=== PATIENT | female | born 1960 | race Caucasian/White ===

== ENCOUNTER 2022-03-18 17:01 | Observation (INO) ==
[2022-03-18] MEDS ORDERED: ONDANSETRON INJ 2 MG/ML 2 ML VIAL IV STA (17:31)
[2022-03-18] MEDS ORDERED: SODIUM CHLORIDE 0.9% 500 ML IV STA (17:31)
[2022-03-18 18:20] LABS: Basophils # (auto) 0.08 K/uL (0-0.2); Eosinophils # (auto) 0.14 K/uL (0-0.50); Eosinophils % (auto) 1.7 %; Hemoglobin 15.9 g/dl (12.0-16.0); Immature Granulocytes # (auto) 0.01 K/uL (0.01-0.20); Immature Granulocytes % (auto) 0.1 %; Lymphocytes # (auto) 1.81 K/uL (1.2-3.4); Lymphocytes % (auto) 22.5 %; Mean Corpuscular Hemoglobin 30.7 pg (25.0-34.0); Mean Corpuscular Hgb Conc 35.3 g/dL (32.0-36.0); Mean Corpuscular Volume 86.9 fL (80.0-100.0); Mean Platelet Volume 10.1 fL (9.4-12.4); Monocytes # (auto) 0.51 K/uL (0.11-0.59); Monocytes % (auto) 6.4 %; Neutrophils # (auto) 5.48 K/uL (1.40-6.50); Neutrophils % (auto) 68.3 %; Platelet Count 300 K/uL (130-400); RDW Coefficient of Variation 11.7 % (11.5-14.5); RDW Standard Deviation 37.2 fL (36.4-46.3); Red Blood Count 5.18 M/uL (4.20-5.40); White Blood Count 8.03 K/ul (4.8-10.8)
[2022-03-18 18:32] LABS: Partial Thromboplastin Time 28.5 Seconds (21.0-31.0); Prothrombin Time 10.6 Seconds (9.0-12.0)
[2022-03-18 18:35] LABS: Albumin Level 4.5 gm/dl (3.4-5.0); Bilirubin,Total 0.5 mg/dl (0.2-1.0); Calcium 10.2 mg/dl (8.5-10.1); Potassium 3.7 mmol/L (3.5-5.1)
--- NOTE | 2022-03-18 18:36 | Emergency Department Note ---
Impression & Plan Acute epigastric pain, Chest pain, Abnormal EKG ED Provider Note NAME: MELYSSA MADRIGAL AGE: 61 SEX: F : 1960 ARRIVES VIA: Walk-In INFORMANT: Patient, ED PROVIDER(S): Ray Carpenter DO CHIEF COMPLAINT: Nausea HPI: The patient is a 61-year-old female who presented to the emergency department for an evaluation of nausea and weakness. The patient has been noticing generalized malaise and nausea over the course of the last few days. S he is visiting her daughter from out of town. She presented to the emergency department today because of ongoing symptoms. She was treated with Zofran and protocol. She denies having any back pain. She denies having any dysuria or frequency. She does complain of some upper chest pain as well as into her neck. She does not have a cardiac history but has a family history of cardiac disease. ROS: See above HPI for pertinent positives & negatives. A total of 10 systems reviewed and were otherwise negative. PAST MEDICAL HISTORY: See Below PAST SURGICAL HISTORY: See Below FAMILY HISTORY: See Below SOCIAL HISTORY: See Below HOME MEDICATIONS: See Below ALLERGIES: See Below VITALS: See Below PHYSICAL EXAMINATION: GENERAL: Patient is awake alert in no acute distress patient is resting comfortably and showing no signs of anxiety EYES: The conjunctivae are clear. The pupils are round and reactive. EARS, NOSE, MOUTH AND THROAT: The nose is without any evidence of any deformity. NECK: The neck is nontender and supple. RESPIRATORY: Normal respiratory effort is noted there is no evidence of wheezing rhonchi or rales CARDIOVASCULAR: Regular rate and rhythm noted there no murmurs rubs or gallops normal S1 normal S2. GASTROINTESTINAL: The abdomen is soft. Abdomen is nontender. MUSCULOSKELETAL/EXTREMITIES: There is no evidence of gross deformity full range of motion is noted in the hips and shoulders. SKIN: There is no obvious evidence of any rash. There are no petechiae, pallor or cyanosis noted. NEUROLOGIC: Patient is awake alert and oriented x3 MEDICAL DECISION MAKING: The patient is a 61-year-old female who presented to the emergency department for an evaluation of nonspecific upper abdominal pain. The patient also describes chest pain. She has had some nausea. She had very vague symptoms especially over the course the last few days. She presented to the emergency department today for further evaluation. She was found to have an abnormal EKG. The patient's troponin was negative x2. She had serial troponin measurements while in the emergency department. I discussed patient's laboratory and radiographic studies with her. I also discussed the limitations of the emergency department work-up for this sort of discomfort. She has no abdominal pain on physical exam but her daughter was concerned this could be a gallbladder issue. Laboratory studies do not reflect that however an ultrasound was ordered. Given the patient's abnormal EKG I do feel the patient may require further inpatient management as well as treatment and evaluation. For this reason I will discuss her case with the on-call [facility] hospitalist. Triage Nursing notes reviewed. Prior medical records reviewed Vital Signs: reviewed and remarkable for no significant abnormalities Differential diagnosis: Cardiac ischemia, aortic dissection, pulmonary embolism, pneumothorax, pneumonia, pericarditis, myocarditis, esophageal rupture, GERD, cholecystitis, pancreatitis, musculoskeletal, as well as other pathologies. ER treatment provided: See below Diagnostics interpreted by me: ECG: EKG was obtained in the emergency department. My interpretation is normal sinus rhythm at 81 bpm. There was no ectopy. Inferior anterior and low lateral ST depressions were noted. T wave abnormalities were also appreciated. No previous tracing was available. Cardiac Monitoring: An order was placed for continuous cardiac monitoring. The monitor shows a rate of 59 bpm with sinus bradycardia. Laboratory studies: As stated above and show below. Imaging studies: See below. Radiographic imaging was reviewed by myself Consultation(s): Dr. Calvin was notified about the patient. Past Med/Surg History Social History Smoking Status: Never smoker Preferred Language: Jordanian Feels Safe at Home: Yes Allergies Allergies Allergy/AdvReac Type Severity Reaction Status Date / Time lisinopril AdvReac Cough Verified 03/18/22 18:23 Home Meds Home Medications Medication Instructions Recorded Confirmed aspirin 81 mg tablet,delayed 162 mg PO DAILY PRN Prophylaxis 03/18/22 03/18/22 release famotidine 20 mg tablet (Pepcid AC) 20 mg PO DAILY PRN Gi Upset 03/18/2203/18 Results & Data (ED) Vital Signs Vital Signs - 24 hr 03/18/22 17:28 03/18/22 18:21 03/18/22 19:12 Temperature 36.8 C Temperature Source Temporal Artery Scan Pulse Rate 86 Pulse Rate [Left Finger] 75 68 Respiratory Rate 18 18 18 Respiratory Effort / Characteristics Non-Labored Spontaneous Non-Labored Spontaneous Respiratory Depth Normal Normal Respiratory Pattern Regular Regular Blood Pressure 189/93 H Blood Pressure [Left Arm] 164/102 H 175/87 H Blood Pressure Mean 125 Blood Pressure Mean [Left Arm] 122 116 Blood Pressure Position Sitting Blood Pressure Position [Left Arm] Sitting Pulse Oximetry 99 98 97 Oxygen Delivery Method Room Air Room Air Sepsis Recent Fever Within 48 Hours No Sepsis New/Unexplained Change in Mental Status No Sepsis Action Taken by Nursing No Action Required 03/18/22 20:06 Temperature Temperature Source Pulse Rate Pulse Rate [Left Finger] 59 L Respiratory Rate 16 Respiratory Effort / Characteristics Respiratory Depth Respiratory Pattern Blood Pressure Blood Pressure [Left Arm] 130/71 Blood Pressure Mean Blood Pressure Mean [Left Arm] 90 Blood Pressure Position Blood Pressure Position [Left Arm] Pulse Oximetry 98 Oxygen Delivery Method Sepsis Recent Fever Within 48 Hours Sepsis New/Unexplained Change in Mental Status Sepsis Action Taken by [facility] Medications Current Medication List: was personally reviewed by me Laboratory Data Attestation: I reviewed the patient's lab results. 03/18/22 18:12 03/18/22 18:12 Lab Results 03/18/22 03/18/22 03/18/22 Range/Units 18:12 18:12 18:12 WBC 8.03 (4.8-10.8) K/ul RBC 5.18 (4.20-5.40) M/uL Hgb 15.9 (12.0-16.0) g/dl Hct 45.0 (37.0-47.0) % MCV 86.9 (80.0-100.0) fL MCH 30.7 (25.0-34.0) pg MCHC 35.3 (32.0-36.0) g/dL RDW Std Deviation 37.2 (36.4-46.3) fL RDW Coeff of [place] 11.7 (11.5-14.5) % Plt Count 300 (130-400) K/uL MPV 10.1 (9.4-12.4) fL Immature Gran % (Auto) 0.1 % Neut % (Auto) 68.3 % Lymph % (Auto) 22.5 % [place] % (Auto) 6.4 % Eos % (Auto) 1.7 % Baso % (Auto) 1.0 % Neut # (Auto) 5.48 (1.40-6.50) K/uL Lymph # (Auto) 1.81 (1.2-3.4) K/uL [place] # (Auto) 0.51 (0.11-0.59) K/uL Eos # (Auto) 0.14 (0-0.50) K/uL Baso # (Auto) 0.08 (0-0.2) K/uL Immature Gran # (Auto) 0.01 (0.01-0.20) K/uL PT 10.6 (9.0-12.0) Seconds INR 1.0 (0.9-1.1) APTT 28.5 (21.0-31.0) Seconds PTT Ratio 1.0 D-Dimer (0-500) ug/L FEU Sodium 142 (136-145) mmol/L Potassium 3.7 (3.5-5.1) mmol/L Chloride 106 (98-107) mmol/L Carbon Dioxide 30 (21-32) mmol/L Anion Gap 6 (3-11) BUN 18 (6-23) mg/dl Creatinine 0.77 (0.6-1.2) mg/dl Est Cr Clr Drug Dosing 84.0 ml/min Est GFR ( Amer) 97.3 ml/min Est GFR (Non-Af Amer) 83.9 ml/min BUN/Creatinine Ratio 23.4 H (10-20) Glucose 100 H (70-99(Fasting)) mg/dl Calcium 10.2 H (8.5-10.1) mg/dl Total Bilirubin 0.5 (0.2-1.0) mg/dl AST 13 (13-39) U/L ALT 10 (7-52) U/L Alkaline Phosphatase 82 (34-104) U/L Troponin I High Sens 4.1 (0-14) pg/ml Total Protein 7.3 (6.0-8.3) gm/dl Albumin 4.5 (3.4-5.0) gm/dl Globulin 2.8 (2.5-4.0) gm/dl Albumin/Globulin Ratio 1.6 (0.9-2) Lipase 36 (11-82) U/L Urine Color Urine Appearance (Clear) Urine pH (4.5-7.5) Ur Specific [place] (1.000-1.030) Urine Protein (Negative) Urine Glucose (UA) (Negative) Urine Ketones (Negative) Urine Blood (Negative) Urine Nitrite (Negative) Urine Bilirubin (Negative) Urine Urobilinogen (Negative) Ur Leukocyte Esterase (Negative) Urine WBC (Auto) (0-5) /hpf Urine RBC (Auto) (0-4) /hpf U Hyaline Cast (Auto) (0-5) /lpf U Epithel Cells (Auto) (0-5) /lpf Urine Bacteria (Auto) (Negative) 03/18/22 03/18/22 03/18/22 Range/Units 18:12 19:52 20:30 WBC (4.8-10.8) K/ul RBC (4.20-5.40) M/uL Hgb (12.0-16.0) g/dl Hct (37.0-47.0) % MCV (80.0-100.0) fL MCH (25.0-34.0) pg MCHC (32.0-36.0) g/dL RDW Std Deviation (36.4-46.3) fL RDW Coeff of [place] (11.5-14.5) % Plt Count (130-400) K/uL MPV (9.4-12.4) fL Immature Gran % (Auto) % Neut % (Auto) % Lymph % (Auto) % [place] % (Auto) % Eos % (Auto) % Baso % (Auto) % Neut # (Auto) (1.40-6.50) K/uL Lymph # (Auto) (1.2-3.4) K/uL [place] # (Auto) (0.11-0.59) K/uL Eos # (Auto) (0-0.50) K/uL Baso # (Auto) (0-0.2) K/uL Immature Gran # (Auto) (0.01-0.20) K/uL PT (9.0-12.0) Seconds INR (0.9-1.1) APTT (21.0-31.0) Seconds PTT Ratio D-Dimer 260 (0-500) ug/L FEU Sodium (136-145) mmol/L Potassium (3.5-5.1) mmol/L Chloride (98-107) mmol/L Carbon Dioxide (21-32) mmol/L Anion Gap (3-11) BUN (6-23) mg/dl Creatinine (0.6-1.2) mg/dl Est Cr Clr Drug Dosing ml/min Est GFR ( Amer) ml/min Est GFR (Non-Af Amer) ml/min BUN/Creatinine Ratio (10-20) Glucose (70-99(Fasting)) mg/dl Calcium (8.5-10.1) mg/dl Total Bilirubin (0.2-1.0) mg/dl AST (13-39) U/L ALT (7-52) U/L Alkaline Phosphatase (34-104) U/L Troponin I High Sens 3.5 (0-14) pg/ml Total Protein (6.0-8.3) gm/dl Albumin (3.4-5.0) gm/dl Globulin (2.5-4.0) gm/dl Albumin/Globulin Ratio (0.9-2) Lipase (11-82) U/L Urine Color Yellow Urine Appearance Clear (Clear) Urine pH 7.5 (4.5-7.5) Ur Specific [place] 1.008 (1.000-1.030) Urine Protein Negative (Negative) Urine Glucose (UA) Negative (Negative) Urine Ketones Negative (Negative) Urine Blood Trace H (Negative) Urine Nitrite Negative (Negative) Urine Bilirubin Negative (Negative) Urine Urobilinogen Negative (Negative) Ur Leukocyte Esterase 2+ H (Negative) Urine WBC (Auto) 5-10 H (0-5) /hpf Urine RBC (Auto) 0-4 (0-4) /hpf U Hyaline Cast (Auto) 1-5 (0-5) /lpf U Epithel Cells (Auto) 5-10 H (0-5) /lpf Urine Bacteria (Auto) Negative (Negative) Administered Medications Discontinued Medications Sodium Chloride (Nss) 500 mls @ 999 mls/hr IV .Q31M STA Stop: 03/18/22 18:01 Last Infusion: 03/18/22 19:49 Dose: 0 mls/hr Documented By: Admin: 03/18/22 19:13 Dose: 999 mls/hr Documented By: CSÉAR Ondansetron HCl (Ondansetron Inj 2 Mg/Ml 2 Ml Vial) 4 mg IV NOW STA Stop: 03/18/22 17:32 Last Admin: 03/18/22 18:14 Dose: 4 mg Documented By: TW Imaging Data Radiologist's Impression: Chest X-Ray 03/18/22 17:32 XR chest 1V not portable CLINICAL HISTORY: Chest pain, nonspecific COMPARISON STUDY: No previous studies for comparison. FINDINGS: Lung volumes are normal. Lungs are clear. There is no pneumothorax or pleural effusion. Cardiac size is normal. Mediastinal contours are normal. There is no evidence for pulmonary edema. IMPRESSION: No acute cardiopulmonary findings. ACT 112: Negative or not required by law. Electronically signed by: Sánchez Kaur M.D. 03/18/2022 6:52 PM Discharge Plan Visit Data Chief Complaint: Abdominal Pain Stated Complaint: ABDOMINAL PAIN, CHEST PAIN, NAUSEA ED Provider: Ray Carpenter Discharge Problem: Acute epigastric pain, Chest pain, Abnormal EKG Patient Disposition: Being Evaluated by Hospitalist Forms Stand Alone Forms: [facility] Prescriptions Prescriptions: No Action famotidine [Pepcid AC] 20 mg Tablet 20 mg PO DAILY PRN (Reason: Gi Upset) aspirin 81 mg Tablet,Delayed Release (Dr/Ec) 162 mg PO DAILY PRN (Reason: Prophylaxis) Referrals Referrals: PCP,NO [Physician] -
[2022-03-18 18:41] LABS: Albumin Globulin Ratio 1.6 (0.9-2); BUN Creatinine Ratio 23.4 (10-20); Est GFR (African American) 97.3 ml/min; Est GFR (Non-African American) 83.9 ml/min; Globulin 2.8 gm/dl (2.5-4.0); Total Protein 7.3 gm/dl (6.0-8.3)
[2022-03-18 18:46] LABS: Troponin I High Sensitivity 4.1 pg/ml (0-14)
--- NOTE | 2022-03-18 18:53 | XRay Report ---
XR chest 1V not portable CLINICAL HISTORY: Chest pain, nonspecific COMPARISON STUDY: No previous studies for comparison. FINDINGS: Lung volumes are normal. Lungs are clear. There is no pneumothorax or pleural effusion. Car diac size is normal. Mediastinal contours are normal. There is no evidence for pulmonary edema. IMPRESSION: No acute cardiopulmonary findings. ACT 112: Negative or not required by law. Electronically signed by: Sánchez Kaur M.D. 03/18/2022 6:52 PM
[2022-03-18 19:36] LABS: D Dimer 260 ug/L FEU (0-500)
[2022-03-18 20:04] LABS: Appearance Urine Clear (Clear); Bacteria Urine Automated Negative (Negative); Bilirubin Urine Negative (Negative); Blood Urine Trace (Negative); Color Urine Yellow; Glucose Urine UA Negative (Negative); Ketones Urine Negative (Negative); Leukocyte Esterase Urine 2+ (Negative); Nitrite Urine Negative (Negative); Protein Urine Negative (Negative); RBC Urine Automated 0-4 /hpf (0-4); Specific Gravity Urine 1.008 (1.000-1.030); Urobilinogen Urine Negative (Negative); pH Urine 7.5 (4.5-7.5)
--- NOTE | 2022-03-18 22:26 | History & Physical Report ---
Date of Service March 18, 2022 Assessment & Plan (1) Chest pain: Plan: 7oyo female presenting with several days of abdominal discomfort, bloating and nausea. Had an brief episode of chest pain earlier today. Patient is active, no exertional symptoms. No history of CAD and no known risk factors for such. Troponin x 2 is NEGATIVE. EKG as above with some ST-T wave abnormalities/depressions Patient presently without chest discomfort Do not strongly suspect cardiac cause of discomfort. ?GI -Observation -Check RUQUS to assess gallbladder -Pepcid 20mg po daily -Reglan as needed for nausea -Maalox as needed for heartburn -Repeat troponin with AM labs -Check 2D echo (2) Abnormal EKG: Plan: Patient presently without chest pain. No known cardiac risk factors. Troponin x 2 NEGATIVE -Repeat troponin -Check 2D echo -Check Mg and PO4 and replete as needed F/E/N - LR at 100mL/hr x 2 liters, electrolyte management as needed, regular diet as tolerated Ppx - low risk for dvt Code - full per discussion with patient Dispo - Observation to medical History of Present Illness Chief Complaint: nausea Primary Care Provider: Jade Gutierrez MD Azeb Multani is a pleasant 61yo female with no significant past medical history presenting with several days of nausea, abdominal bloating. Her symptoms began 4 days ago with abdominal bloating and discomfort mostly in LUQ under her breast. She has had significant nausea as well, pressure in her head and neck and alternating constipation and non-bloody diarrhea. She has had a poor appetite and has not been eating or drinking much over the last several days. She felt very lightheaded this morning, did not fall or pass out. Today she had a brief episode of left sided chest pain. Mild pain, squeezing in nature that lasted 5-10 minutes. She denies fever, chills, cough, SOB or vomiting. No urinary symptoms. In the ER she is afebrile, HD stable, NAD. EKG performed in triage with some non-specific ST changes. Patient has had troponin x 2 that are NEGATIVE. Remainder of studies below. She presently has no chest pain or discomfort. No additional complaints at this time. ER Course: NSS x 500mL, Zofran 4mg IV. Patient took 162mg of ASA prior to arrival Patient took 20mg of Pepcid prior to arrival with some relief in symptoms Allergies Allergy/AdvReac Type Severity Reaction Status Date / Time lisinopril AdvReac Cough Verified 03/18/22 18:23 Home Medications Medication Instructions Recorded Confirmed Type aspirin 81 mg tablet,delayed 162 mg PO DAILY PRN Prophylaxis 03/18/22 03/18/22 History release famotidine 20 mg tablet (Pepcid AC) 20 mg PO DAILY PRN Gi Upset 03/18/22 03/18/22 History Past Med/Surg History Medical History (Updated 03/18/22 @ 22:16 by Yocasta Calvin DO) No significant past medical history Surgical History (Updated 03/18/22 @ 22:16 by Yocasta Calvin DO) No significant past surgical history Family History (Updated 03/18/22 @ 22:16 by Yocasta Calvin DO) Other Diabetes Social History Smoking Status: Never smoker Preferred Language: Sami Feels Safe at Home: Yes Review of Systems Review of Systems: All systems reviewed & are unremarkable except as noted in HPI & below Physical Exam Physical Exam: General: patient resting comfortably, NAD, non-toxic in appearance, AA&O x 4, appears anxious Skin: warm, dry, intact, no rashes or lesions HEENT: NC/AT, PERRL, EOMI, anicteric sclera, conjunctiva without injection, external ear normal to inspection and nontender, nares patent, slightly dry mucus membranes, dentition intact, no oropharyngeal lesions, neck supple, trachea midline, no LAD, no thyromegaly, no JVD Heart: +S1/S2, regular, no m/r/g, no chest wall pain with palpation Lungs: equal air entry bilaterally, no rales/rhonchi/wheezes Abd: +BS, soft, NT/ND, no masses/organomegaly/ascites Ext: warm, 2+ pulses in UE/LE bilaterally, no clubbing/cyanosis or edema Neuro: nonfocal, patient AA&O x 4, speech intact, no facial droop, moving all extremities on command with equal strength 5/5 Results & Data Results & Data ([facility]) Vital Signs (Past 12 Hours) Vital Signs Temp Pulse Pulse Resp BP BP Pulse Ox 03/18/22 22:00 60 12 162/82 H 99 01/28/23 20:06 59 L 16 130/71 98 03/18/22 19:12 68 18 175/87 H 97 03/18/22 18:21 75 18 164/102 H 98 03/18/22 17:28 36.8 C 86 18 189/93 H 99 O2 Del Method 03/18/22 22:00 03/18/22 20:06 03/18/22 19:12 Room Air 03/18/22 18:21 03/18/22 17:28 Room Air Laboratory Results Laboratory Results WBC 8.03 K/ul (4.8-10.8) 03/18/22 18:12 RBC 5.18 M/uL (4.20-5.40) 03/18/22 18:12 Hgb 15.9 g/dl (12.0-16.0) 03/18/22 18:12 Hct 45.0 % (37.0-47.0) 03/18/22 18:12 MCV 86.9 fL (80.0-100.0) 03/18/22 18:12 MCH 30.7 pg (25.0-34.0) 03/18/22 18:12 MCHC 35.3 g/dL (32.0-36.0) 03/18/22 18:12 RDW Std Deviation 37.2 fL (36.4-46.3) 03/18/22 18:12 RDW Coeff of [place]z 11.7 % (11.5-14.5) 03/18/22 18:12 Plt Count 300 K/uL (130-400) 03/18/22 18:12 MPV 10.1 fL (9.4-12.4) 03/18/22 18:12 Immature Gran % (Auto) 0.1 % 03/18/22 18:12 Neut % (Auto) 68.3 % 03/18/22 18:12 Lymph % (Auto) 22.5 % 03/18/22 18:12 [place] % (Auto) 6.4 % 03/18/22 18:12 Eos % (Auto) 1.7 % 03/18/22 18:12 Baso % (Auto) 1.0 % 03/18/22 18:12 Neut # (Auto) 5.48 K/uL (1.40-6.50) 03/18/22 18:12 Lymph # (Auto) 1.81 K/uL (1.2-3.4) 03/18/22 18:12 [place] # (Auto) 0.51 K/uL (0.11-0.59) 03/18/22 18:12 Eos # (Auto) 0.14 K/uL (0-0.50) 03/18/22 18:12 Baso # (Auto) 0.08 K/uL (0-0.2) 03/18/22 18:12 Immature Gran # (Auto) 0.01 K/uL (0.01-0.20) 03/18/22 18:12 PT 10.6 Seconds (9.0-12.0) 03/18/22 18:12 INR 1.0 (0.9-1.1) 03/18/22 18:12 APTT 28.5 Seconds (21.0-31.0) 03/18/22 18:12 PTT Ratio 1.0 03/18/22 18:12 D-Dimer 260 ug/L FEU (0-500) 03/18/22 18:12 Sodium 142 mmol/L (136-145) 03/18/22 18:12 Potassium 3.7 mmol/L (3.5-5.1) 03/18/22 18:12 Chloride 106 mmol/L (98-107) 03/18/22 18:12 Carbon Dioxide 30 mmol/L (21-32) 03/18/22 18:12 Anion Gap 6 (3-11) 03/18/22 18:12 BUN 18 mg/dl (6-23) 03/18/22 18:12 Creatinine 0.77 mg/dl (0.6-1.2) 03/18/22 18:12 Est Cr Clr Drug Dosing 84.0 ml/min 03/18/22 18:12 Est GFR ( Amer) 97.3 ml/min 03/18/22 18:12 Est GFR (Non-Af Amer) 83.9 ml/min 03/18/22 18:12 BUN/Creatinine Ratio 23.4 (10-20) H 03/18/22 18:12 Glucose 100 mg/dl (70-99(Fasting)) H 03/18/22 18:12 Calcium 10.2 mg/dl (8.5-10.1) H 03/18/22 18:12 Total Bilirubin 0.5 mg/dl (0.2-1.0) 03/18/22 18:12 AST 13 U/L (13-39) 03/18/22 18:12 ALT 10 U/L (7-52) 03/18/22 18:12 Alkaline Phosphatase 82 U/L (34-104) 03/18/22 18:12 Troponin I High Sens 3.5 pg/ml (0-14) 03/18/22 20:30 Total Protein 7.3 gm/dl (6.0-8.3) 03/18/22 18:12 Albumin 4.5 gm/dl (3.4-5.0) 03/18/22 18:12 Globulin 2.8 gm/dl (2.5-4.0) 03/18/22 18:12 Albumin/Globulin Ratio 1.6 (0.9-2) 03/18/22 18:12 Lipase 36 U/L (11-82) 03/18/22 18:12 Urine Color Yellow 03/18/22 19:52 Urine Appearance Clear (Clear) 03/18/22 19:52 Urine pH 7.5 (4.5-7.5) 03/18/22 19:52 Ur Specific [place] 1.008 (1.000-1.030) 03/18/22 19:52 Urine Protein Negative (Negative) 03/18/22 19:52 Urine Glucose (UA) Negative (Negative) 03/18/22 19:52 Urine Ketones Negative (Negative) 03/18/22 19:52 Urine Blood Trace (Negative) H 03/18/22 19:52 Urine Nitrite Negative (Negative) 03/18/22 19:52 Urine Bilirubin Negative (Negative) 03/18/22 19:52 Urine Urobilinogen Negative (Negative) 03/18/22 19:52 Ur Leukocyte Esterase 2+ (Negative) H 03/18/22 19:52 Urine WBC (Auto) 5-10 /hpf (0-5) H 03/18/22 19:52 Urine RBC (Auto) 0-4 /hpf (0-4) 03/18/22 19:52 U Hyaline Cast (Auto) 1-5 /lpf (0-5) 03/18/22 19:52 U Epithel Cells (Auto) 5-10 /lpf (0-5) H 03/18/22 19:52 Urine Bacteria (Auto) Negative (Negative) 03/18/22 19:52 SARS-CoV-2, RNA, NAAT NEGATIVE (NEGATIVE) 03/18/22 21:37 Impressions Chest X-Ray 03/18/22 17:32 XR chest 1V not portable CLINICAL HISTORY: Chest pain, nonspecific COMPARISON STUDY: No previous studies for comparison. FINDINGS: Lung volumes are normal. Lungs are clear. There is no pneumothorax or pleural effusion. Cardiac size is normal. Mediastinal contours are normal. There is no evidence for pulmonary edema. IMPRESSION: No acute cardiopulmonary findings. ACT 112: Negative or not required by law. Electronically signed by: Sánchez Kaur M.D. 03/18/2022 6:52 PM ECG Additional Comments: EKG wtih NSR at 81bpm, normal axis, UV=893, QRS=88, CTs=470, ST-T abnormalities PG Care Time/CCT Total # of Minutes Spent Total Time Spent with Patient: Total time spent is greater than 50% in coordination of care (as documented) at patient's floor/unit and/or counseling patient: Coding Level of Care Code 19209 INT INP/OBS CARE 2/55MIN Diagnoses Chest pain R07.9 Chest pain type: unspecified Abnormal EKG R94.31 (1) Chest pain Chest pain type: unspecified Qualified Code(s): R07.9 - Chest pain, unspecified
[2022-03-18] MEDS ORDERED: METOCLOPRAMIDE HCL 5 MG TABLET PO PRN (23:38)
[2022-03-18] MEDS ORDERED: ALUMINUM/MAGNESIUM SUSP 30 ML UDC PO PRN (23:38)
[2022-03-18 23:58] LABS: Magnesium 2.1 mg/dl (1.7-2.4)
[2022-03-19 00:04] LABS: Phosphorus 3.1 mg/dl (2.5-4.9)
[2022-03-19] MEDS: LACTATED RINGER'S 1,000 ML IV SCH ×2 (00:08→09:43)
--- NOTE | 2022-03-19 07:35 | Ultrasound Report ---
ABDOMINAL ULTRASOUND, RIGHT UPPER QUADRANT HISTORY: upper abd pain. COMPARISON: None. FINDINGS: Pancreas: Obscured by overlying bowel gas. Liver: Unremarkable. Gallbladder: No gallbladder wall thickening. No gallstones. CBD: 3 mm. Right kidney: No hydronephrosis. IMPRESSION: No significant abnormality identified within the right upper quadrant. ACT 112: Negative or not required by law. Electronically signed by: Aryan Mckeon M.D. 03/19/2022 7:34 AM
--- NOTE | 2022-03-19 07:36 | Electrocardiogram Report ---
Test Reason : Blood Pressure : / mmHG Vent. Rate : 081 BPM Atrial Rate : 081 BPM P-R Int : 134 ms QRS Dur : 088 ms QT Int : 382 ms P-R-T Axes : 076 000 024 degrees QTc Int : 443 ms Normal sinus rhythm Nonspecific ST and T wave abnormality Abnormal ECG No previous ECGs available Confirmed by Luis Manuel Bueno ([id number]) on 03/19/2022 7:35:43 AM Referred By: REFERRED SELF Confirmed By:Daliln Bueno
--- NOTE | 2022-03-19 08:39 | Hospitalist Progress Note ---
Date of Service March 19, 2022 Assessment & Plan (1) Chest pain: Plan: 7oyo female presenting with several days of abdominal discomfort, bloating and nausea. She states she had some left neck pains x 2 episodes yesterday that lasted 10-15 minutes. Patient tells me that she has had bloating for years and has not noticed any increasing or decreasing factors to her sxs. She states at times her abdomen looks like she is and is better in the AM upon awaken ing. She states she was seen by GI in the past and had EGD and COLO approx 7 years ago. She did have PUD 30 years ago. She also was a smoker and quit 32 years ago. Patient is active, no exertional symptoms. No history of CAD and no known risk factors for such. Troponin x 2 is NEGATIVE. EKG as above with some ST-T wave abnormalities/depressions Patient presently without chest discomfort. Do not strongly suspect cardiac cause of discomfort. ?GI -Observation -Check RUQ U/S to assess gallbladder -Pepcid 20mg po daily -Reglan as needed for nausea -Maalox as needed for heartburn -Repeat troponin with AM labs -Check 2D echo -Consult Cardiology (2) Abnormal EKG: Plan: Patient presently without chest pain. No known cardiac risk factors. Troponin x 2 NEGATIVE -Repeat troponin -Check 2D echo -Check Mg and PO4 and replete as needed (3) Headache: Plan: - Tylenol 650mg q 4 hours as needed (4) Anxiety: Plan: Patient admits to being more anxious lately. She states she is from [place], [place] and there is a "medical crisis" there and the hospital is only 10 beds and not much medical service. Her oldest daughter lives in [place] and she stays with her alot. Her youngest daughter just moved to [place], she is a freshman in college there. She feels her anxiety is from the medical situation in [place] and the fact that she is living alone, since her youngest daughter moved out for college. (5) Indigestion: Plan: Will add Pantoprazole 40mg one daily Continue Pepcid Continue Reglan as needed Plan F/E/N - LR at 100mL/hr x 2 liters, electrolyte management as needed, regular diet as tolerated Ppx - low risk for dvt Encourage OOB Code - full per discussion with patient Dispo - Observation to medical Admission and Anticipated Discharge Date Admission Date: March 18, 2022 Subjective Patient is awake in bed. Review of Systems Constitutional: + fatigue and + anorexia; no fever, no chills, no body aches, no weight loss and no weight gain Ear, Nose, Mouth, Throat: no nasal congestion, no nasal discharge and no post nasal drip Respiratory: no cough, no chest congestion, no dyspnea and no dyspnea on exertion Cardiovascular: no chest pain, no chest pain with activity, no dyspnea, no palpitations, no edema and no calf pain Additional Comments: left neck pain x 2 episodes x 10-15 minutes Gastrointestinal: + abdominal pain, + belching, + bloating, + heartburn, + nausea, + constipation and + diarrhea/loose stools; no early satiety, no vomiting, no coffee ground emesis, no dysphagia and no blood in stools Genitourinary: no dysuria, no difficulty urinating, no urinary frequency and no urinary urgency Integumentary: no rash, no lesions and no new lesions Neurologic: + headache(s); no falls, no tremor(s) and no syncope Psychiatric: + change in appetite, + anxiety and + panic attacks Endocrine: + fatigue; no polydipsia, no polyphagia and no polyuria Results & Data Results & Data ([facility]) Vital Signs (Past 12 Hours) Vital Signs Temp Pulse Pulse Resp BP BP BP 03/19/22 07:06 36.5 C 49 L 16 132/78 03/18/22 23:20 36.6 C 64 16 135/78 03/18/22 22:00 60 12 162/82 H Pulse Ox O2 Del Method 03/19/22 07:06 98 Room Air 03/18/22 23:20 98 Room Air 03/18/22 22:00 99 PG Care Time/CCT Total # of Minutes Spent Total Time Spent with Patient: Total time spent is greater than 50% in coordination of care (as documented) at patient's floor/unit and/or counseling patient: Coding Diagnoses Chest pain R07.9 Chest pain type: unspecified Abnormal EKG R94.31 Headache R51.9 Anxiety F41.9 Indigestion K30 (1) Chest pain Chest pain type: unspecified Qualified Code(s): R07.9 - Chest pain, unspecified
[2022-03-19] MEDS ORDERED: FAMOTIDINE 20 MG TAB PO SCH (09:00)
[2022-03-19] MEDS ORDERED: ACETAMINOPHEN 325 MG TAB PO PRN (09:03)
--- NOTE | 2022-03-19 09:26 | Cardiology Consultation ---
Date of Consultation March 19, 2022 Assessment & Plan (1) Abnormal EKG: Plan 1. Abnormal EKG: Her symptoms at the time of presentation were not consistent with a coronary or cardiac etiology. Symptoms are clearly abdominal in nature. These are fairly longstanding and extended in duration. No elevation in her cardiac biomarkers to suggest any associated cardiac problem certainly not ischemia or an acute coronary syndrome. Her initial EKG was abnormal with some mild ST segment abnormalities. This could been associated with her abdominal complaints, higher vagal tone or even hyperventilation at the time of the EKG. She denied any history of chest discomfort. The neck discomfort described in her history and by the patient was quite fleeting in nature and unlikely to cause these abnormalities. While there is not a definite explanation for the change in her EKG, do not believe this is a cause for continued hospitalization. I think the patient could safely be discharged with follow-up in our clinic for continued monitoring of symptoms and cardiac risk factor modification. History of Present Illness Reason for Consultation: Abnormal EKG Requesting Physician: Nomi Attending Physician: Yocasta Calvin DO History of Present Illness The patient is a 61-year-old woman without a known history of cardiac disease who has been experiencing some abdominal in gastrointestinal complaints for several days. Patient states that she commonly has some bloating in the abdomen. This is associated with some discomfort in both the left and right upper quadrant on occasion. The symptoms produce an element of anorexia and are often associated with a headache. The symptoms themselves wax and wane in severity. She does feel somewhat worse after eating on occasion. She believes she has been eating less as a result. Yesterday her symptoms were persistent and she presented to the emergency room for evaluation. She had 2 episodes of neck discomfort that she believes lasted 10-15 minutes. These were unprovoked. Not necessarily associated with any particular activity or motion. They resolved spontaneously without intervention. Not associated with other jaw, arm or chest pain. No history of chest pain. Yesterday morning she felt somewhat weak and dizzy before taking a shower. Afterwards she continued to feel poorly no sense of palpitation. She claims to be an active person and does not exercise regularly. She tends to avoid very strenuous activity but did not report limitations associated with routine walking or hiking. No history of exertional chest pain. No history of syncope. She does report occasional symptoms of tachycardia. She states that after a day of strenuous activity she will occasionally feel like her heart is beating faster than normal. She does report having worn some monitors, obtained an EKG and possibly had an echocardiogram in the past. This morning she is feeling better. She still has a headache. Some mild abdominal discomfort. No chest or neck discomfort. Allergies Allergy/AdvReac Type Severity Reaction Status Date / Time lisinopril AdvReac Cough Verified 03/18/22 18:23 Home Medications Medication Instructions Recorded Confirmed Type aspirin 81 mg tablet,delayed 162 mg PO DAILY PRN Prophylaxis 03/18/22 03/18/22 History release famotidine 20 mg tablet (Pepcid AC) 20 mg PO DAILY PRN Gi Upset 03/18/22 03/18/22 History Patient History Medical History (Updated 03/19/22 @ 11:07 by Jamee Martin PA-C) No significant past medical history Surgical History (Updated 03/18/22 @ 22:16 by Yocasta Calvin DO) No significant past surgical history Family History (Updated 03/18/22 @ 22:18 by Yocasta Calvin DO) Other Diabetes Social History Smoking Status: Former smoker Smoking End Date: 32 YRS AGO; Hx Alcohol Use: No Hx Substance Use: No Preferred Language: Cymraes Communication Ability: Effective 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 Fatigue and weakness. I feel like I have a connective tissue disorder Physical Exam Physical Exam: She is alert and oriented x3. Mood affect appear normal. She answered all questions appropriately. HEENT: Sclerae are anicteric. Pupils are equal and reactive to light and accommodation. Extraocular movements were intact. Neuro: Cranial nerves intact Neck: Examination of the submandibular region did not reveal any significant lymphadenopathy. Carotids are palpable bilaterally and free of bruits on auscultation. There was no evidence of jugular venous distention. The thyroid was not enlarged. Lungs: Lungs are clear to auscultation bilaterally. There are no rales wheezes or rhonchi. She has normal respiratory effort without use of accessory muscles. There is normal pulmonary excursion. Cardiac: The rhythm was regular. S1 and S2 were normal. There are no murmurs on examination. The PMI was not markedly displaced on palpation. Abdomen: The abdomen was soft and nontender. Extremities: Patient has bilateral radial pulses that are equal in intensity. There is no evidence cyanosis or clubbing. There was no evidence of significant peripheral edema bilaterally. Skin: There are no rashes noted on examination today. Results & Data ([facility]) Vital Signs (Past 12 Hours) Vital Signs Temp Pulse Pulse Resp BP BP BP 03/19/22 07:06 36.5 C 49 L 16 132/78 03/18/22 23:20 36.6 C 64 16 135/78 03/18/22 22:00 60 12 162/82 H Pulse Ox O2 Del Method 03/19/22 07:06 98 Room Air 03/18/22 23:20 98 Room Air 03/18/22 22:00 99 Laboratory Results Abnormal Lab Results 03/18/22 03/18/22 03/18/22 18:12 18:12 18:12 WBC 8.03 RBC 5.18 Hgb 15.9 Hct 45.0 MCV 86.9 MCH 30.7 MCHC 35.3 RDW Std Deviation 37.2 RDW Coeff of [place] 11.7 Plt Count 300 MPV 10.1 Immature Gran % (Auto) 0.1 Neut % (Auto) 68.3 Lymph % (Auto) 22.5 Ray % (Auto) 6.4 Eos % (Auto) 1.7 Baso % (Auto) 1.0 Neut # (Auto) 5.48 Lymph # (Auto) 1.81 Ray # (Auto) 0.51 Eos # (Auto) 0.14 Baso # (Auto) 0.08 Immature Gran # (Auto) 0.01 PT 10.6 INR 1.0 APTT 28.5 PTT Ratio 1.0 D-Dimer Sodium 142 Potassium 3.7 Chloride 106 Carbon Dioxide 30 Anion Gap 6 BUN 18 Creatinine 0.77 Est Cr Clr Drug Dosing 84.0 Est GFR ( Amer) 97.3 Est GFR (Non-Af Amer) 83.9 BUN/Creatinine Ratio 23.4 H Glucose 100 H Calcium 10.2 H Phosphorus Magnesium Total Bilirubin 0.5 AST 13 ALT 10 Alkaline Phosphatase 82 Troponin I High Sens 4.1 Total Protein 7.3 Albumin 4.5 Globulin 2.8 Albumin/Globulin Ratio 1.6 Lipase 36 Urine Color Urine Appearance Urine pH Ur Specific [place] Urine Protein Urine Glucose (UA) Urine Ketones Urine Blood Urine Nitrite Urine Bilirubin Urine Urobilinogen Ur Leukocyte Esterase Urine WBC (Auto) Urine RBC (Auto) U Hyaline Cast (Auto) U Epithel Cells (Auto) Urine Bacteria (Auto) SARS-CoV-2, RNA, NAAT 03/18/22 03/18/22 03/18/22 18:12 19:52 20:30 WBC RBC Hgb Hct MCV MCH MCHC RDW Std Deviation RDW Coeff of [place] Plt Count MPV Immature Gran % (Auto) Neut % (Auto) Lymph % (Auto) Ray % (Auto) Eos % (Auto) Baso % (Auto) Neut # (Auto) Lymph # (Auto) Ray # (Auto) Eos # (Auto) Baso # (Auto) Immature Gran # (Auto) PT INR APTT PTT Ratio D-Dimer 260 Sodium Potassium Chloride Carbon Dioxide Anion Gap BUN Creatinine Est Cr Clr Drug Dosing Est GFR ( Amer) Est GFR (Non-Af Amer) BUN/Creatinine Ratio Glucose Calcium Phosphorus Magnesium Total Bilirubin AST ALT Alkaline Phosphatase Troponin I High Sens 3.5 Total Protein Albumin Globulin Albumin/Globulin Ratio Lipase Urine Color Yellow Urine Appearance Clear Urine pH 7.5 Ur Specific [place] 1.008 Urine Protein Negative Urine Glucose (UA) Negative Urine Ketones Negative Urine Blood Trace H Urine Nitrite Negative Urine Bilirubin Negative Urine Urobilinogen Negative Ur Leukocyte Esterase 2+ H Urine WBC (Auto) 5-10 H Urine RBC (Auto) 0-4 U Hyaline Cast (Auto) 1-5 U Epithel Cells (Auto) 5-10 H Urine Bacteria (Auto) Negative SARS-CoV-2, RNA, NAAT 03/18/22 03/18/22 03/19/22 20:30 21:37 05:31 WBC RBC Hgb Hct MCV MCH MCHC RDW Std Deviation RDW Coeff of [place] Plt Count MPV Immature Gran % (Auto) Neut % (Auto) Lymph % (Auto) Ray % (Auto) Eos % (Auto) Baso % (Auto) Neut # (Auto) Lymph # (Auto) Ray # (Auto) Eos # (Auto) Baso # (Auto) Immature Gran # (Auto) PT INR APTT PTT Ratio D-Dimer Sodium Potassium Chloride Carbon Dioxide Anion Gap BUN Creatinine Est Cr Clr Drug Dosing Est GFR ( Amer) Est GFR (Non-Af Amer) BUN/Creatinine Ratio Glucose Calcium Phosphorus 3.1 Magnesium 2.1 Total Bilirubin AST ALT Alkaline Phosphatase Troponin I High Sens 4.5 Total Protein Albumin Globulin Albumin/Globulin Ratio Lipase Urine Color Urine Appearance Urine pH Ur Specific [place] Urine Protein Urine Glucose (UA) Urine Ketones Urine Blood Urine Nitrite Urine Bilirubin Urine Urobilinogen Ur Leukocyte Esterase Urine WBC (Auto) Urine RBC (Auto) U Hyaline Cast (Auto) U Epithel Cells (Auto) Urine Bacteria (Auto) SARS-CoV-2, RNA, NAAT NEGATIVE Diagnostic Findings Chest x-ray obtained the time admission not reveal any acute cardiopulmonary findings. Echocardiogram obtained today revealed some mild aortic valve sclerosis. No other significant valvular disease. Normal LV function and wall motion. ECG Additional Comments: EKG at the time admission demonstrated normal sinus rhythm with diffuse ST segment changes. EKG obtained today revealed normal sinus rhythm with nonspecific ST and T-wave changes. PG Care Time/CCT Total # of Minutes Spent Total Time Spent with Patient: Total time spent is greater than 50% in coordination of care (as documented) at patient's floor/unit and/or counseling patient: Coding Level of Care Code OFFICE CONSULT LVL 4, 40 MIN Diagnoses Abnormal EKG R94.31
[2022-03-19] MEDS ORDERED: PANTOprazole 40 MG TAB PO SCH (11:15)
--- NOTE | 2022-03-19 11:23 | XCELERA ---
[id number]
--- NOTE | 2022-03-19 15:49 | Discharge Summary ---
Date of Service March 19, 2022 Admission HPI Per Admitting Provider Azeb Multani is a pleasant 61yo female with no significant past medical history presenting with several days of nausea, abdominal bloating. Her symptoms began 4 days ago with abdominal bloating and discomfort mostly in LUQ under her breast. She has had significant nausea as well, pressure in her head and neck and alternating constipation and non-bloody diarrhea. She has had a poor appetite and has not been eating or drinking much over the last several days. She felt very lightheaded this morning, did not fall or pass out. Today she had a brief episode of left sided chest pain. Mild pain, squeezing in nature that lasted 5-10 minutes. She denies fever, chills, cough, SOB or vomiting. No urinary symptoms. In the ER she is afebrile, HD stable, NAD. EKG performed in triage with some non-specific ST changes. Patient has had troponin x 2 that are NEGATIVE. Remainder of studies below. She presently has no chest pain or discomfort. No additional complaints at this time. ER Course: NSS x 500mL, Zofran 4mg IV. Patient took 162mg of ASA prior to arrival Patient took 20mg of Pepcid prior to arrival with some relief in symptoms Admission Exam Per Admitting Provider General: patient resting comfortably, NAD, non-toxic in appearance, AA&O x 4, appears anxious Skin: warm, dry, intact, no rashes or lesions HEENT: NC/AT, PERRL, EOMI, anicteric sclera, conjunctiva without injection, external ear normal to inspection and nontender, nares patent, slightly dry mucus membranes, dentition intact, no oropharyngeal lesions, neck supple, trachea midline, no LAD, no thyromegaly, no JVD Heart: +S1/S2, regular, no m/r/g, no chest wall pain with palpation Lungs: equal air entry bilaterally, no rales/rhonchi/wheezes Abd: +BS, soft, NT/ND, no masses/organomegaly/ascites Ext: warm, 2+ pulses in UE/LE bilaterally, no clubbing/cyanosis or edema Neuro: nonfocal, patient AA&O x 4, speech intact, no facial droop, moving all extremities on command with equal strength 5/5 Principal Diagnosis Abdominal pain Discharge Exam Constitutional well developed, well nourished, + well hydrated and average body habitus; no acute distress ENMT external ear and nose normal, oropharynx normal Neck trachea midline, no thyromegaly Thyroid: normal thyroid Respiratory normal respiratory effort and able to speak in complete sentences; no respiratory distress, no labored breathing and no cough Auscultation: lungs clear to auscultation bilaterally Cardiovascular Rate/Rhythm: regular rate and regular rhythm Heart Sounds: normal S1 and normal S2; no murmur Vessels: no JVD and no carotid bruit Extremities: normal capillary refill; no calf tenderness and no edema Gastrointestinal (Abdomen) normal bowel sounds, soft, nontender, no hepatosplenomegaly Musculoskeletal no cyanosis or clubbing, extremities motor strength 5/5 Skin no rashes, warm and dry Neurologic PERRL, EOMI, accommodation nl, no face palsy, no dysarthria Psychiatric A+Ox3, euthymic affect Suicidal Thoughts: denies suicidal thoughts Homicidal Thoughts: denies homicidal thoughts Cognition: recent memory grossly intact, remote memory grossly intact, attention grossly intact and language grossly intact Insight: good insight Discharge Data Allergies Allergy/AdvReac Type Severity Reaction Status Date / Time lisinopril AdvReac Cough Verified 03/18/22 18:23 Consultations 03/19/22 07:02 Consult Cardiology Routine Ordered Studies 03/18/22 21:32 US gallbladder Urgent ABDOMINAL ULTRASOUND, RIGHT UPPER QUADRANT HISTORY: upper abd pain. COMPARISON: None. FINDINGS: Pancreas: Obscured by overlying bowel gas. Liver: Unremarkable. Gallbladder: No gallbladder wall thickening. No gallstones. CBD: 3 mm. Right kidney: No hydronephrosis. IMPRESSION: No significant abnormality identified within the right upper quadrant. Hospital Course (1) Chest pain: 61 yo female presenting with several days of abdominal discomfort, bloating and nausea. She states she had some left neck pains x 2 episodes yesterday that lasted 10-15 minutes. Patient tells me that she has had bloating for years and has not noticed any increasing or decreasing factors to her sxs. She states at times her abdomen looks like she is and is better in the AM upon awakening. She states she was seen by GI in the past and had EGD and COLO approx 7 years ago. She did have PUD 30 years ago. She also was a smoker and quit 32 years ago. Patient is active, no exertional symptoms. No history of CAD and no known risk factors for such. Troponin x 2 is NEGATIVE. EKG as above with some ST-T wave abnormalities/depressions Patient presently without chest discomfort. Do not strongly suspect cardiac cause of discomfort. ?GI -Observation -RUQ U/S to assess gallbladder - normal and CBD also normal -Pepcid 20mg po daily -Repeat troponin normal -Check 2D echo - no wall abnormality with normal EF -Consulted Cardiology (2) Abnormal EKG: Patient presently without chest pain. No known cardiac risk factors. Troponin x 2 NEGATIVE -Repeat troponin negative -Check 2D echo -Mg and PO4 normal Cardiology was consulted and Dr Bueno's note stated there is not a definite explanation for the change in her EKG, do not believe this is a cause for continued hospitalization. I think the patient could safely be discharged with follow-up in our clinic for continued monitoring of symptoms and cardiac risk factor modification. (3) Headache: - Tylenol 650mg q 4 hours as needed (4) Anxiety: Patient admits to being more anxious lately. She states she is from [place], [place] and there is a "medical crisis" there and the hospital is only 10 beds and not much medical service. Her oldest daughter lives in [place] and she stays with her alot. Her youngest daughter just moved to [place], she is a freshman in college there. She feels her anxiety is from the medical situation in [place] and the fact that she is living alone, since her youngest daughter moved out for college. Patient to follow up with her family physician (5) Indigestion: Discussed to avoid any food triggers Pepcid as needed Plan discharge to home follow up with cardiology in 2-3 weeks follow up with GI in 2-4 weeks Discussed high fiber diet, adequate po water intake, good bowel regimen discussed Discussed should consider an outpatient retroperitoneal ultrasound or other imaging to r/o any ischemia and or SMA syndrome this can be done on outpatient basis. Also can follow with GI for possible IBS or bacterial overgrowth Discussed also for patient to follow up with family physician to discuss her an xiety and possible therapy/ medication Total Time Total Time Spent Total Time Spent (In Minutes): 40 Discharge Plan Discharge Items Patient Disposition: Home - Self-Care Reason For Visit: NAUSEA, CHEST DISCOMFORT Discharge Diagnosis: nausea, chest discomfort and neck pain Condition on Discharge: Good Activity: Resume your previous activity Lifting: Gradually increase as tolerated Non-emergency contact: Primary Care Provider and Director Call non-emergency contact if: you have any medication questions and your symptoms worsen Follow-up/Referrals: CelestinoJohnbree Reyez DO [Physician] - Luis Manuel Bueno MD [Physician] - Jade Gutierrez MD [Primary Care Provider] - Diet: Heart Healthy Addtl Attending Provider Instructions: You presented to [facility] with complaints of upper abdominal discomfort and neck pain. You had cardiac enzymes that were normal and some nonspecific EKG changes. You were evaluated by a cariologist who felt that "while there is not a definite explanation for the change in her EKG, do not believe this is a cause for continued hospitalization. I think the patient could safely be discharged with follow-up in our clinic for continued monitoring of symptoms and cardiac risk factor modification." You had an echo that did not reveal any abnormalities. Your vitals remained stable and your blood work also was normal. You had an U/S of your liver and gallbladder and they were also normal. You will be discharged home and to follow up with your family physician in 1-2 weeks, also need to follow up with Dr Bueno and a Chucking Machine Operator. It was suggested to complete your abdominal discomfort work up, that can be done as an outpatient. You should have possibly a retroperitoneal ultrasound to r/o any ischemia or SMA abnormalities. Also to consider out patient GI work up for possible Celiac or bacterial overgrowth. These all can be worked up on outpatient basis. Also discussed possible therapy and or medication for anxiety and stressors. Pending Studies at Discharge: No Stand-Alone Forms: [facility] Medications and DC Order Prescriptions: Continued famotidine [Pepcid AC] 20 mg Tablet 20 mg PO DAILY PRN (Reason: Gi Upset) aspirin 81 mg Tablet,Delayed Release (Dr/Ec) 162 mg PO DAILY PRN (Reason: Prophylaxis) Discharge Orders: Discharge Order (Routine); Ordered 03/19/22 Ordered By: Jamee Heller/Other Patient Handouts: Anxiety Disorders Tx, ED GERD (Adult) Admission Data Admit Date/Time: 03/18/22 22:09 Attending Provider: Yocasta Calvin Admit Provider: Yocasta Calvin Primary Care Provider: Jade Gutierrez Other Providers: Luis Manuel Bueno Coding Level of Care Code HOSP INP/OBS DISCH >30 MIN Diagnoses Chest pain R07.9 Chest pain type: unspecified Abnormal EKG R94.31 Headache R51.9 Anxiety F41.9 Indigestion K30
--- NOTE | 2022-03-19 21:15 | Electrocardiogram Report ---
Test Reason : Blood Pressure : / mmHG Vent. Rate : 055 BPM Atrial Rate : 055 BPM P-R Int : 140 ms QRS Dur : 086 ms QT Int : 442 ms P-R-T Axes : 061 -18 -24 degrees QTc Int : 422 ms Sinus bradycardia Nonspecific ST abnormality Abnormal ECG When compared with ECG of 18-MAR-2022 18:07, No significant change was found Confirmed by Luis Manuel Bueno ([id number]) on 03/19/2022 9:15:04 PM Referred By: REFERRED SELF Confirmed By:Dallin Bueno
== END 2022-03-19 17:57 | disposition home or self-care (01) ==
LOC: ED 17:01 → 3N 17:01